=== PATIENT | female | born 1960 | race Two or more races ===

== ENCOUNTER 2023-04-19 09:54 | Inpatient (IN) | payer SELFPAY ==
[~2023-04-19] VITALS: Ht 170 cm; Wt 60.0 kg
[2023-04-20] MEDS ORDERED: DIGOXIN 0.25 MG TAB PO SCH (10:00)
== END 2023-04-19 12:49 | disposition home or self-care (01) | DRG 192 ==
LOC: DOU IN ADS 09:54
PROVIDERS: ADMIT Internal Medicine Geriatric Medicine; ATTEND Internal Medicine Geriatric Medicine
DX: J43.9 Emphysema, unspecified (principal)
CPT/HCPCS: 36415; 80162; 82565; 84460; G0378